=== PATIENT | female | born 1965 | race Caucasian/White ===

== ENCOUNTER → 2020-12-30 | Outpatient (CLI) | payer BC ==
[~2020-12-30] MED LIST: IBP800T PO; MDR10T PO
--- NOTE | 2020-12-30 12:08 | Diagnostic Imaging Report ---
INDICATION: Routine screening. Comparison is made with prior mammogram from 05/02/2013 and 08/12/2012. 2-D and 3-D bilateral screening mammography was performed with CAD. Both breasts are heterogeneously dense, limiting the sensitivity of mammography. There is a bilobed circumscribed lesion versus 2 adjacent circumscribed lesions in the upper and outer aspect of the right breast at mid depth. This has increased in size since study from 2012. This could represent enlarging cysts. Ultrasound is recommended. This is located approximately 7 cm from the nipple. A left breast is unremarkable apart from scattered benign calcifications. Axillae are unremarkable. IMPRESSION: Enlarging circumscribed lesion in the upper outer right breast 7 cm from the nipple. Further evaluation with ultrasound is recommended. BI-RADS Category 0 ACR BI-RADS Category 0: Incomplete. (Needs additional imaging evaluation). Result letter will be mailed to the patient. Note: At least 10% of breast cancer is not imaged by mammography. Dictated by: Dictated on workstation # [id number]
== END ==
LOC: RAD 09:44
PROVIDERS: ATTEND Nurse Practitioner Family
DX: Z12.31 Encounter for screening mammogram for malignant neoplasm of breast (principal); N64.9 Disorder of breast, unspecified
CPT/HCPCS: 77063; 77067

== ENCOUNTER → 2021-01-06 | Outpatient (CLI) | payer BC ==
--- NOTE | 2021-01-06 15:48 | Diagnostic Imaging Report ---
INDICATION: Right breast density. Correlation is made with screening mammogram from 12/30/2020. Sonographic interrogation upper outer right breast was performed. No sonographic abnormality is seen. No solid or cystic masses detected. IMPRESSION: BI-RADS Category 3. No sonographic abnormality is seen. Mammographic density does have a benign appearance, however followup right mammogram in 6 months is recommended to show continued stability. ACR BI-RADS Category 3: Probably benign findings. Result letter will be mailed to the patient. Note: At least 10% of breast cancer is not imaged by mammography. Dictated by: Dictated on workstation # [id number]
== END ==
LOC: RAD 14:15
PROVIDERS: ATTEND Nurse Practitioner Family
DX: N64.9 Disorder of breast, unspecified (principal)

== ENCOUNTER 2021-01-22 05:38 | Outpatient (CLI) | payer BC ==
[~2021-01-22] VITALS: Ht 165 cm; Wt 89.4 kg
== END 2021-01-27 11:59 | disposition home or self-care (01) ==
LOC: PREOP 05:38
PROVIDERS: ATTEND Surgery
DX: Z01.818 Encounter for other preprocedural examination (principal)

== ENCOUNTER 2022-03-20 21:34 | Day surgery (SDC) | payer BC ==
[~2022-03-20] VITALS: Ht 167.7 cm; Wt 85.2 kg
--- NOTE | 2022-03-20 21:51 | ED Abdominal Pain ---
General Chief Complaint: Abdominal/GI Problems Stated Complaint: ABDOMINAL PAIN Nursing Triage Note: PT AMB TO ED BY POV WITH C/O LOWER ABD PAIN. REPORTS PAIN AND DECREASED APPETITE SINCE WEDNESDAY MORNING. LBM THIS MORNING. DENIES N/V/D OR FEVER. Source of Information: Patient History of Present Illness Date Seen by Provider: Mar 20, 2022 Time Seen by Provider: 21:50 Initial Comments PT ARRIVES VIA POV FROM HOME STATES SHE WOKE UP YESTERDAY MORNING WITH CRAMPING ALL OVER HER MID AND LOWER ABDOMEN THE PAIN IS IN HER RLQ TODAY. PAIN IS CONSTANT, AND DOES NOT RADIATE. IT DOES HURT A LITTLE TO WALK AND MOVE SHE HAS HAD DECREASED APPETITE ALL DAY YESTERDAY AND TODAY. SHE DID NOT EAT AT ALL YESTERDAY, AND ONLY HAD COME CHICKEN NOODLE SOUP AROUND NOON TODAY SHE HAS BEEN DRINKING SOME LIQUIDS TODAY NO NAUSEA/VOMITING. HAD BM THIS AM, AFTER TAKING LAXATIVES LAST NIGHT NO URINARY SYMPTOMS NO FEVER HAS NOT TAKEN ANYTHING FOR PAIN PT HAS HAD A PRIOR UTERINE ABLATION AND X 1. NO OTHER SURGERIES SHE HAS HAD ELEVATED BLOOD PRESSURE, BUT DOES NOT TAKE ANYTHING FOR IT. PCP: DR. RUVALCABA Allergies and Home Medications Allergies Coded Allergies: Penicillins (Unverified Allergy, Unknown, 06/22/13) Patient Home Medication List Home Medication List Reviewed: Yes Hydrocodone Bit/Acetaminophen (HYDROcodone/APAP 5 MG/325 MG TAB) 1 Tab Tab, 1 TAB PO Q8H PRN for PAIN-MODERATE (5-7) Prescribed by: NICOLASA MOSHER on 03/21/22 1144 Sulfamethoxazole/Trimethoprim (Bactrim Ds Tablet) 1 Each Tablet, 1 EACH PO BID Prescribed by: NICOLASA MOSHER on 03/21/22 1153 Review of Systems Review of Systems Constitutional: no symptoms reported Respiratory: No Symptoms Reported Cardiovascular: No Symptoms Reported Gastrointestinal: See HPI, Abdominal Pain; Denies Constipated, Denies Diarrhea, Denies Nausea; Poor Appetite; Denies Vomiting Genitourinary: No Symptoms Reported Musculoskeletal: no symptoms reported Skin: no symptoms reported Psychiatric/Neurological: No Symptoms Reported Endocrine: No Symptoms Reported Hematologic/Lymphatic: No Symptoms Reported Past Crsvxfu-Skkolr-Eihkkm Hx Patient Social History Tobacco Use?: No Use of E-Cig and/or Vaping dev: No Substance use?: No Alcohol Use?: No Pt feels they are or have been: No Immunizations Up To Date Influenza Vaccine Up-to-Date: No; Not Current First/Initial COVID19 Vaccinat: 04/2020 Second COVID19 Vaccination Jose Luis: 06/07/2020 Third COVID19 Vaccination Date: YES Past Medical History Surgery/Hospitalization HX: C SECT Surgeries: Yes (UTERINE ABLATION) Section, Tonsillectomy Respiratory: No Cardiac: No Neurological: No : No Reproductive Disorders: Yes (ABNORMAL UTERINE BLEEDING; S/P UTERINE ABLATION) Female Reproductive Disorders: Menstrual Problems Genitourinary: No Gastrointestinal: No Musculoskeletal: No Endocrine: No HEENT: No Cancer: No Psychosocial: No Integumentary: No Blood Disorders: No Physical Exam Vital Signs Vital Signs - First Documented 03/20/22 21:39 Temp 37.0 Pulse 106 Resp 16 B/P (MAP) 187/101 (129) Pulse Ox 94 O2 Delivery Room Air Capillary Refill : Less Than 3 Seconds Height/Weight/BMI Height: 5'5.00" Weight: 182lbs. oz. 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, no motor/sensory deficits, a lert, normal mood/affect, oriented x 3 Skin: normal color, warm/dry; No rash Progress/Results/Core Measures Results/Orders Lab Results Laboratory Tests Test 03/20/22 22:00 03/20/22 22:20 Range/Units Urine Color YELLOW Urine Clarity CLOUDY Urine pH 5.5 5-9 Urine Specific [place] >1.030 1.016-1.022 Urine Protein 1+ H NEGATIVE Urine Glucose (UA) NEGATIVE NEGATIVE Urine Ketones 2+ H NEGATIVE Urine Nitrite NEGATIVE NEGATIVE Urine Bilirubin NEGATIVE NEGATIVE Urine Urobilinogen 0.2 < = 1.0 MG/DL Urine Leukocyte Esterase TRACE H NEGATIVE Urine RBC (Auto) 1+ H NEGATIVE Urine RBC NONE /HPF Urine WBC 5-10 H /HPF Urine Squamous Epithelial Cells >50 H /HPF Urine Crystals NONE /LPF Urine Bacteria FEW H /HPF Urine Casts NONE /LPF Urine Mucus LARGE H /LPF Urine Culture Indicated YES Urine Test NEGATIVE NEGATIVE White Blood Count 12.4 H 4.3-11.0 10^3/uL Red Blood Count 4.81 3.80-5.11 10^6/uL Hemoglobin 14.2 11.5-16.0 g/dL Hematocrit 42 35-52 % Mean Corpuscular Volume 87 80-99 fL Mean Corpuscular Hemoglobin 30 25-34 pg Mean Corpuscular Hemoglobin Concent 34 32-36 g/dL Red Cell Distribution Width 12.5 10.0-14.5 % Platelet Count 165 130-400 10^3/uL Mean Platelet Volume 10.5 9.0-12.2 fL Immature Granulocyte % (Auto) 0 % Neutrophils (%) (Auto) 81 H 42-75 % Lymphocytes (%) (Auto) 10 L 12-44 % Monocytes (%) (Auto) 8 0-12 % Eosinophils (%) (Auto) 0 0-10 % Basophils (%) (Auto) 0 0-10 % Neutrophils # (Auto) 10.1 H 1.8-7.8 10^3/uL Lymphocytes # (Auto) 1.3 1.0-4.0 10^3/uL Monocytes # (Auto) 1.0 0.0-1.0 10^3/uL Eosinophils # (Auto) 0.0 0.0-0.3 10^3/uL Basophils # (Auto) 0.0 0.0-0.1 10^3/uL Immature Granulocyte # (Auto) 0.1 0.0-0.1 10^3/uL Erythrocyte Sedimentation Rate 45 H 0-30 MM/HR Sodium Level 136 135-145 MMOL/L Potassium Level 3.6 3.6-5.0 MMOL/L Chloride Level 102 98-107 MMOL/L Carbon Dioxide Level 22 21-32 MMOL/L Anion Gap 12 5-14 MMOL/L Blood Urea Nitrogen 13 7-18 MG/DL Creatinine 0.81 0.60-1.30 MG/DL Estimat Glomerular Filtration Rate 86 BUN/Creatinine Ratio 16 Glucose Level 111 H 70-105 MG/DL Calcium Level 9.1 8.5-10.1 MG/DL Corrected Calcium 9.0 8.5-10.1 MG/DL Total Bilirubin 0.8 0.1-1.0 MG/DL Aspartate Amino Transf (AST/SGOT) 12 5-34 U/L Alanine Aminotransferase (ALT/SGPT) 20 0-55 U/L Alkaline Phosphatase 81 40-136 U/L C-Reactive Protein High Sensitivity 11.16 H 0.00-0.50 MG/DL Total Protein 7.5 6.4-8.2 GM/DL Albumin 4.1 3.2-4.5 GM/DL Amylase Level 22 L 25-125 U/L Lipase 5 L 8-78 U/L My Orders Orders - KASSIE FALL DO Ua Culture If Indicated (03/20/22 21:50) Hcg,Qualitative Urine (03/20/22 21:51) Ed Iv/Invasive Line Start (03/20/22 21:58) Amylase (03/20/22 21:58) Cbc With Automated Diff (03/20/22 21:58) Comprehensive Metabolic Panel (03/20/22 21:58) Hs C Reactive Protein (03/20/22 21:58) Lipase (03/20/22 21:58) Erythrocyte Sedimentation Rate (03/20/22 21:58) Urine Culture (03/20/22 22:00) Ct Abd/Pelvis Wo(Kidney Stone) (03/20/22 22:32) Ketorolac Injection (Toradol Injection) (03/20/22 22:45) Ceftriaxone 1 Gm Pre-Mix (Rocephin 1 Gm (03/20/22 22:45) Ed Iv/Invasive Line Start (03/20/22 23:11) Lactated Ringers (Lr 1000 Ml Iv Solution (03/20/22 23:15) Medications Given in ED Current Medications Medications Dose Ordered Sig/[place] Route Start Time Stop Time Status Last Admin Dose Admin Ceftriaxone Sodium/Dextrose 50 ml @ 100 mls/hr ONCE ONCE IV 03/20/22 22:45 03/20/22 23:14 DC 03/20/22 23:15 100 MLS/HR Ketorolac Tromethamine 30 mg ONCE ONCE IVP 03/20/22 22:45 03/20/22 22:46 DC 03/20/22 23:15 30 MG Lactated Ringer's 1,000 ml @ 0 mls/hr Q0M ONCE IV 03/20/22 23:15 03/20/22 23:16 DC 03/20/22 23:15 0 MLS/HR Vital Signs/I&O 03/20/22 21:39 Temp 37.0 Pulse 106 Resp 16 B/P (MAP) 187/101 (129) Pulse Ox 94 O2 Delivery Room Air Blood Pressure Mean: 129 Progress Progress Note : Progress Note GIVEN : -IV FLUIDS -ROCEPHIN FOR UTI -TORADOL UNEVENTFUL ER STAY. REVIEWED TEST RESULTS, ANTICIPATED COURSE, NEED FOR SURGERY/ADMIT, AND PT IS AGREEABLE TO PLAN Diagnostic Imaging Comments CT ABDOMEN/PELVIS--+ APPENDICITIS, WITH INFLAMMATION AROUND TERMINAL ILEUM. NO FREE AIR OR ABSCESS. PT [facility] RADIOLOGIST VIA PHONE AT [phone] AND VIA FAX AT [phone] Reviewed: Reviewed by Me, Discussed w/Radiologist Departure Communication (Admissions) [id number]--SPOKE WITH DR. MOSHER, SURGEON, WILL BE DOWN TO SEE PT. DR. MOSHER HAS NOT BEEN DOWN TO SEE PT, WILL ADMIT TO THE FLOOR, UNTIL HE CAN SEE PT. Impression Primary Impression: Appendicitis Additional Impression: Urinary tract infection Disposition: ADMITTED INPATIENT Condition: Stable Admissions Decision to Admit Reason: Admit from ER (General) Decision to Admit/Date: Mar 20, 2022 Time/Decision to Admit Time: 23:00 Departure-Patient Inst. Referrals: BOBBI RUVALCABA MD (PCP) Primary Care Physician Scripts Sulfamethoxazole/Trimethoprim (Bactrim Ds Tablet) 1 Each Tablet 1 EACH PO BID, #6 TAB Prov: NICOLASA MOSHER DO 03/21/22 Hydrocodone Bit/Acetaminophen (HYDROcodone/APAP 5 MG/325 MG TAB) 1 Tab Tab 1 TAB PO Q8H PRN for PAIN-MODERATE (5-7), #20 TAB Prov: NICOLASA MOSHER DO 03/21/22 KASSIE FALL DO Mar 20, 2022 21:51
[2022-03-20 22:25] LABS: BILIRUBIN,URINE NEGATIVE (NEGATIVE); CLARITY,URINE CLOUDY; COLOR,URINE YELLOW; GLUCOSE, URINE (UA) NEGATIVE (NEGATIVE); KETONES,URINE 2+ (NEGATIVE); NITRITE,URINE NEGATIVE (NEGATIVE); PH,URINE 5.5 (5-9); PROTEIN,URINE 1+ (NEGATIVE)
[2022-03-20 22:26] LABS: BACTERIA,URINE FEW /HPF; LEUKOCYTE ESTERASE ,URINE TRACE (NEGATIVE)
[2022-03-20 22:27] LABS: SQUAMOUS EPITHELIAL CELL,UR >50 /HPF
[2022-03-20 22:30] LABS: BASOPHILS % (AUTO) 0 % (0-10); EOSINOPHILS % (AUTO) 0 % (0-10); HEMATOCRIT 42 % (35-52); HEMOGLOBIN 14.2 g/dL (11.5-16.0); LYMPHOCYTES # (AUTO) 1.3 10^3/uL (1.0-4.0); LYMPHOCYTES % (AUTO) 10 % (12-44); MEAN CORPUSCULAR HEMOGLOBIN 30 pg (25-34); MEAN CORPUSCULAR HGB CONC 34 g/dL (32-36); MEAN CORPUSCULAR VOLUME 87 fL (80-99); MEAN PLATELET VOLUME 10.5 fL (9.0-12.2); MONOCYTES % (AUTO) 8 % (0-12); NEUTROPHILS # (AUTO) 10.1 10^3/uL (1.8-7.8); NEUTROPHILS % (AUTO) 81 % (42-75); PLATELET COUNT 165 10^3/uL (130-400); WHITE BLOOD COUNT 12.4 10^3/uL (4.3-11.0)
[2022-03-20 22:45] LABS: ALBUMIN 4.1 GM/DL (3.2-4.5); POTASSIUM 3.6 MMOL/L (3.6-5.0)
[2022-03-20] MEDS ORDERED: cefTRIAXone 1 GM PRE-MIX 50 ML IV ONE (22:45)
[2022-03-20] MEDS ORDERED: KETOROLAC 30 MG/ML VIAL IVP ONE (22:45)
[2022-03-20 22:46] LABS: CALCIUM 9.1 MG/DL (8.5-10.1)
[2022-03-20 22:48] LABS: TOTAL PROTEIN 7.5 GM/DL (6.4-8.2)
[2022-03-20 22:49] LABS: ERYTHROCYTE SEDIMENTATION RATE 45 MM/HR (0-30)
[2022-03-20 22:50] LABS: BILIRUBIN,TOTAL 0.8 MG/DL (0.1-1.0)
[2022-03-20 22:51] LABS: CREATININE SERUM 0.81 MG/DL (0.60-1.30)
[2022-03-20] MEDS ORDERED: LACTATED RINGERS 1,000 ML IV ONE (23:15)
[2022-03-21] VITALS (9 sets, daily range): BP systolic 110–134; BP diastolic 57–79
[2022-03-21] MEDS ORDERED: ONDANSETRON 4 MG/2 ML (SDV) Z0FRAN IV PRN (01:30)
[2022-03-21] MEDS ORDERED: fentaNYL INJ 100 MCG/2 ML AMP IV PRN (01:30)
[2022-03-21] MEDS: D5 1/2 NS W/KCL 20 MEQ/L 1,000 ML IV SCH ×2 (01:52→06:49)
[2022-03-21 05:39] LABS: BASOPHILS % (AUTO) 0 % (0-10); EOSINOPHILS # (AUTO) 0.1 10^3/uL (0.0-0.3); EOSINOPHILS % (AUTO) 1 % (0-10); HEMATOCRIT 36 % (35-52); HEMOGLOBIN 12.3 g/dL (11.5-16.0); LYMPHOCYTES # (AUTO) 1.7 10^3/uL (1.0-4.0); LYMPHOCYTES % (AUTO) 15 % (12-44); MEAN CORPUSCULAR HEMOGLOBIN 30 pg (25-34); MEAN CORPUSCULAR HGB CONC 34 g/dL (32-36); MEAN CORPUSCULAR VOLUME 88 fL (80-99); MEAN PLATELET VOLUME 10.7 fL (9.0-12.2); MONOCYTES % (AUTO) 9 % (0-12); NEUTROPHILS # (AUTO) 8.2 10^3/uL (1.8-7.8); NEUTROPHILS % (AUTO) 75 % (42-75); PLATELET COUNT 175 10^3/uL (130-400); WHITE BLOOD COUNT 10.9 10^3/uL (4.3-11.0)
[2022-03-21 06:05] LABS: CALCIUM 8.4 MG/DL (8.5-10.1); CREATININE SERUM 0.65 MG/DL (0.60-1.30); POTASSIUM 3.5 MMOL/L (3.6-5.0)
--- NOTE | 2022-03-21 06:46 | Diagnostic Imaging Report ---
PROCEDURE: CT urinary tract, rule out kidney stone. TECHNIQUE: Multiple contiguous axial images were obtained through the abdomen and pelvis without the use of intravenous contrast. Auto Exposure Controls were utilized during the CT exam to meet ALARA standards for radiation dose reduction. INDICATION: Abdominal pain. COMPARISON: None. DISCUSSION: The lung bases are well-aerated. Normal heart size. No pleural or pericardial fluid. The liver, gallbladder, pancreas, stomach, spleen, and adrenal glands are unremarkable. No renal stone or hydronephrosis. The aorta is normal in caliber. There are inflammatory changes noted along the appendix which appears dilated and thick-walled. However, inflammatory changes extend from the right pelvis and along the right abdomen involving the cecum and terminal ileum. No abscess or free air identified. Whether the inflammatory changes within the appendix are primary and the other changes within the bowel are secondary or vice versa is indeterminate. This likely represents acute appendicitis though secondary changes within the appendix from an underlying enterocolitis cannot be excluded. Recommend clinical correlation. No free air. No adenopathy. The uterus and urinary bladder are unremarkable. No osseous abnormality. IMPRESSION: 1. Significant inflammatory changes noted involving the right lower quadrant and right pelvis. This primarily involves the appendix and the adjacent cecum and terminal ileum. See above discussion. 2. Agree with preliminary report. Dictated by: Dictated on workstation # [id number]
--- NOTE | 2022-03-21 08:26 | Consultation - Surgery ---
CARLYJESSICA Barron 03/21/22 0826: History of Present Illness History of Present Illness Patient Consulted On(radha/time) 03/21/22 08:25 Date Seen by Provider: Mar 21, 2022 Time Seen by Provider: 07:15 Reason for Visit: Abdominal pain History of Present Illness Ms. Mena is a 56 year old female with no significant past medical history who presented to the ED MAR 23 for abdominal pain. On morning patient had sore, abdominal cramping that was generalized throughout her abdomen. The pain proceeded to get worse. She had a loss of appetite. The pain seemed to localize to her suprapubic/RLQ region. She denied nausea or vomiting or diarrhea. She did have some constipation so she took some laxatives which caused some loose bowel movements but did not improve the pain. Moving made her pain worse. She described it as dull or cramping and progressive. Denies radiation of pain. Did not take any pain medicine. Patient had a CT done in the ED that showed appendicitis. UA consistent with UTI, patient denied trouble urinating or pain with urination. Unsure if suprapubic pain was from UTI or appendicitis. Allergies and Home Medications Allergies Coded Allergies: Penicillins (Unverified Allergy, Unknown, 06/22/13) Past [id number] Hx Patient Social History Smoking Status: Never a Smoker 2nd Hand Smoke Exposure: No Alcohol Use?: No Have you traveled recently?: No Surgeries History of Surgeries: Yes (Uterine ablation 6-8 years ago) Surgeries: Section, Tonsillectomy Respiratory History of Respiratory Disorde: No Cardiovascular History of Cardiac Disorders: No Neurological History of Neurological Disord: No Reproductive System : No Hx Reproductive Disorders: Yes (ABNORMAL UTERINE BLEEDING; S/P UTERINE ABLATION) Female Reproductive Disorders: Menstrual Problems Genitourinary History of Genitourinary Disor: No Gastrointestinal History of Gastrointestinal Di: No Musculoskeletal History of Musculoskeletal Dis: No Endocrine History of Endocrine Disorders: No HEENT History of HEENT Disorders: No Cancer History of Cancer: No Psychosocial History of Psychiatric Problem: No Integumentary History of Skin or Integumenta: No Blood Transfusions History of Blood Disorders: No Family Medical History Significant Family History: No Pertinent Family Hx (Patient denied history of medial conditions in mother, father, or siblings.) Review of Systems-General Constitutional: No chills, No fever Respiratory: No cough, No short of breath Cardiovascular: No chest pain, No palpitations Gastrointestinal: abdominal pain, constipation, loss of appetite; No nausea, No vomiting Genitourinary: No dysuria, No frequency, No hesitancy Psychiatric/Neurological: Denies Numbness, Denies Tingling Physical Exam-General Problems Physical Exam Vital Signs Vital Signs - First Documented 03/20/22 21:39 Temp 37.0 Pulse 106 Resp 16 B/P (MAP) 187/101 (129) Pulse Ox 94 O2 Delivery Room Air Capillary Refill : Less Than 3 Seconds General Appearance: WD/WN, no apparent distress HEENT: PERRL/EOMI; No scleral icterus (R), No scleral icterus (L) Neck: non-tender, normal inspection Respiratory: chest non-tender, lungs clear, normal breath sounds, no respiratory distress, no accessory muscle use Cardiovascular: normal peripheral pulses, regular rate, rhythm, no murmur Peripheral Pulses: 2+ Radial Pulses (R), 2+ Radial Pulses (L) Gastrointestinal: soft; No distended; tenderness (Tender in RLQ and suprapubic. Greatest tenderness in RLQ.) Extremities: non-tender, no calf tenderness Neurologic/Psychiatric: no motor/sensory deficits, alert, normal mood/affect, oriented x 3 Skin: normal color, warm/dry Data Review Labs Laboratory Tests 03/20/22 22:00: Urine Color YELLOW, Urine Clarity CLOUDY, Urine pH 5.5, Urine Specific Colman >1.030, Urine Protein 1+H, Urine Glucose (UA) NEGATIVE, Urine Ketones 2+H, Urine Nitrite NEGATIVE, Urine Bilirubin NEGATIVE, Urine Urobilinogen 0.2, Urine Leukocyte Esterase TRACEH, Urine RBC (Auto) 1+H, Urine RBC NONE, Urine WBC 5-10H , Urine Squamous Epithelial Cells >50H, Urine Crystals NONE, Urine Bacteria FEWH , Urine Casts NONE, Urine Mucus LARGEH, Urine Culture Indicated YES, Urine Test NEGATIVE 03/20/22 22:20: White Blood Count 12.4H, Red Blood Count 4.81, Hemoglobin 14.2, Hematocrit 42, Mean Corpuscular Volume 87, Mean Corpuscular Hemoglobin 30, Mean Corpuscular Hemoglobin Concent 34, Red Cell Distribution Width 12.5, Platelet Count 165, Mean Platelet Volume 10.5, Immature Granulocyte % (Auto) 0, Neutrophils (%) (Auto) 81H, Lymphocytes (%) (Auto) 10L, Monocytes (%) (Auto) 8, Eosinophils (%) (Auto) 0, Basophils (%) (Auto) 0, Neutrophils # (Auto) 10.1H, Lymphocytes # (Auto) 1.3, Monocytes # (Auto) 1.0, Eosinophils # (Auto) 0.0, Basophils # (Auto) 0.0, Immature Granulocyte # (Auto) 0.1, Erythrocyte Sedimentation Rate 45H, Sodium Level 136, Potassium Level 3.6, Chloride Level 102, Carbon Dioxide Level 22, Anion Gap 12, Blood Urea Nitrogen 13, Creatinine 0.81, Estimat Glomerular Filtration Rate 86, BUN/Creatinine Ratio 16, Glucose Level 111H, Calcium Level 9.1, Corrected Calcium 9.0, Total Bilirubin 0.8, Aspartate Amino Transf (AST/SGOT) 12, Alanine Aminotransferase (ALT/SGPT) 20, Alkaline Phosphatase 81, C-Reactive Protein High Sensitivity 11.16H, Total Protein 7.5, Albumin 4.1, Amylase Level 22L, Lipase 5L 03/21/22 05:08: White Blood Count 10.9, Red Blood Count 4.08, Hemoglobin 12.3, Hematocrit 36, Mean Corpuscular Volume 88, Mean Corpuscular Hemoglobin 30, Mean Corpuscular Hemoglobin Concent 34, Red Cell Distribution Width 12.5, Platelet Count 175, Mean Platelet Volume 10.7, Immature Granulocyte % (Auto) 0, Neutrophils (%) (Auto) 75, Lymphocytes (%) (Auto) 15, Monocytes (%) (Auto) 9, Eosinophils (%) (Auto) 1, Basophils (%) (Auto) 0, Neutrophils # (Auto) 8.2H, Lymphocytes # (Auto) 1.7, Monocytes # (Auto) 1.0, Eosinophils # (Auto) 0.1, Basophils # (Auto) 0.0, Immature Granulocyte # (Auto) 0.0, Sodium Level 135, Potassium Level 3.5L, Chloride Level 105, Carbon Dioxide Level 21, Anion Gap 9, Blood Urea Nitrogen 10, Creatinine 0.65, Estimat Glomerular Filtration Rate 104, BUN/Creatinine Ratio 15, Glucose Level 137H, Calcium Level 8.4L Radiology Date of Exam:03/20/22 CT ABD/PELVIS WO(KIDNEY STONE) PROCEDURE: CT urinary tract, rule out kidney stone. TECHNIQUE: Multiple contiguous axial images were obtained through the abdomen and pelvis without the use of intravenous contrast. Auto Exposure Controls were utilized during the CT exam to meet ALARA standards for radiation dose reduction. INDICATION: Abdominal pain. COMPARISON: None. DISCUSSION: The lung bases are well-aerated. Normal heart size. No pleural or pericardial fluid. The liver, gallbladder, pancreas, stomach, spleen, and adrenal glands are unremarkable. No renal stone or hydronephrosis. The aorta is normal in caliber. There are inflammatory changes noted along the appendix which appears dilated and thick-walled. However, inflammatory changes extend from the right pelvis and along the right abdomen involving the cecum and terminal ileum. No abscess or free air identified. Whether the inflammatory changes within the appendix are primary and the other changes within the bowel are secondary or vice versa is indeterminate. This likely represents acute appendicitis though secondary changes within the appendix from an underlying enterocolitis cannot be excluded. Recommend clinical correlation. No free air. No adenopathy. The uterus and urinary bladder are unremarkable. No osseous abnormality. IMPRESSION: 1. Significant inflammatory changes noted involving the right lower quadrant and right pelvis. This primarily involves the appendix and the adjacent cecum and terminal ileum. See above discussion. 2. Agree with preliminary report. Assessment/Plan Assessment/Plan Assessment/Plan Acute appendicitis Per radiology report: inflammatory changes in appendix which is dilated and thick walled. Also inflammatory changes involving cecum and terminal ileum. Possible UTI UA showed leukocyte esterase, bacteria, and WBC. Also showed squamous epithelial cells, possibly not clean catch Treated with ceftriaxone in ED Abdominal pain Secondary to above Leukocytosis 12.4 to 10.9 this morning NPO IVF, antiemetics, and pain control as needed Plan for surgery today, consent not signed yet as of this note NICOLASA HADDAD DO 03/21/22 1107: History of Present Illness History of Present Illness Time Seen by Provider: 09:10 History of Present Illness Surgery asked to consult regarding RLQ pain/appendicitis. HPI per ED: PT ARRIVES VIA POV FROM HOME, STATES SHE WOKE UP YESTERDAY MORNING WITH CRAMPING ALL OVER HER MID AND LOWER ABDOMEN, THE PAIN IS IN HER RLQ TODAY. PAIN IS CONSTANT, AND DOES NOT RADIATE. IT DOES HURT A LITTLE TO WALK AND MOVE, SHE HAS HAD DECREASED APPETITE ALL DAY YESTERDAY AND TODAY. SHE DID NOT EAT AT ALL YESTERDAY, AND ONLY HAD COME CHICKEN NOODLE SOUP AROUND NOON TODAY, SHE HAS BEEN DRINKING SOME LIQUIDS TODAY, NO NAUSEA/VOMITING. HAD BM THIS AM, AFTER TAKING LAXATIVES LAST NIGHT, NO URINARY SYMPTOMS, NO FEVER, HAS NOT TAKEN ANYTHING FOR PAIN When I spoke with pt this am she said pain started around belly button and went down into RLQ. Pain was described as dull, achey and constant. Associated with loss of appetite. Allergies and Home Medications Allergies Coded Allergies: Penicillins (Unverified Allergy, Unknown, 06/22/13) Patient Home Medication List Home Medication List Reviewed: Yes Past Dpcmyoz-[id number]-Nugkzw Hx Patient Social History Smoking Status: Never a Smoker Alcohol Use?: No Surgeries History of Surgeries: Yes (Uterine ablation 6-8 years ago) Surgeries: Section Respiratory History of Respiratory Disorde: No Cardiovascular History of Cardiac Disorders: No Neurological History of Neurological Disord: No Genitourinary History of Genitourinary Disor: No Gastrointestinal History of Gastrointestinal Di: No Musculoskeletal History of Musculoskeletal Dis: No Endocrine History of Endocrine Disorders: No HEENT History of HEENT Disorders: No Loss of Vision: Denies Hearing Impairment: Denies Cancer History of Cancer: No Psychosocial History of Psychiatric Problem: No Integumentary History of Skin or Integumenta: No Family Medical History Significant Family History: No Pertinent Family Hx (Patient denied history of medial conditions in mother, father, or siblings.) Review of Systems-General Constitutional: No chills, No fever EENTM: No double vision, No mouth pain, No mouth swelling, No epistaxis Respiratory: No cough, No short of breath Cardiovascular: No chest pain, No palpitations Gastrointestinal: abdominal pain, constipation, loss of appetite; No nausea, No vomiting Genitourinary: No dysuria, No frequency, No hesitancy Musculoskeletal: No joint pain, No joint swelling Skin: No change in color, No change in hair/nails Psychiatric/Neurological: Denies Anxiety, Denies Depressed, Denies Seizure, Denies Tingling Physical Exam-General Problems Physical Exam General Appearance: WD/WN, mild distress (secondary to pain), obese Eyes: Bilateral Eye PERRL, Bilateral Eye EOMI HEENT: pharynx normal; No scleral icterus (R), No scleral icterus (L) Neck: non-tender, supple Respiratory: chest non-tender, lungs clear, normal breath sounds, no respirator y distress, no accessory muscle use Cardiovascular: regular rate, rhythm, no murmur Peripheral Pulses: 2+ Radial Pulses (R), 2+ Radial Pulses (L) Gastrointestinal: soft; No distended; tenderness (Tender in RLQ and suprapubic. Greatest tenderness in RLQ.) Rectal: deferred Extremities: non-tender, no pedal edema, no calf tenderness Neurologic/Psychiatric: no motor/sensory deficits, alert, normal mood/affect, oriented x 3 Skin: normal color, warm/dry Lymphatic: no adenopathy (neck, axilla or groin) Assessment/Plan Assessment/Plan Assessment/Plan Acute appendicitis Per radiology report: inflammatory changes in appendix which is dilated and thick walled. Also inflammatory changes involving cecum and terminal ileum. Possible UTI UA showed leukocyte esterase, bacteria, and WBC. Also showed squamous epithelial cells, possibly not clean catch Treated with ceftriaxone in ED Abdominal pain Secondary to above Leukocytosis 12.4 to 10.9 this morning I reviewed the CT myself and spoke with ED physician. Pt is NPO, getting IV fluids, antiemetics, and pain control as needed. Plan for surgery today; Laparoscopic Appendectomy, possible open and all other indicated procedures. Wi ll get consent signed. I went over all risks and complications not limited to pain, bleeding, infection, scar, damage to intestine and need for further procedure. All questions answered to her and her family's satisfaction. Supervisory-Addendum Brief Verification & Attestation Participated in pt care: history, MDM, physical Personally performed: exam, history, MDM, supervision of care Care discussed with: Medical Student Procedures: n/a Verification and Attestation of Medical Student E/M Service A medical student performed and documented this service. I then reviewed and verified all information documented by the medical student and made modifications to such information, when appropriate. I personally performed a physical exam, medical decision making and then discussed any differences between the notes and made revisions as necessary to create one note. Nicolasa Haddad , 03/21/22 , 11:07 JESSICA CARROLL Mar 21, 2022 08:26 NICOLASA HADDAD DO Mar 21, 2022 11:07
[2022-03-21] MEDS ORDERED: LIDOCAINE/EPI 1%-1:100,000 (XYLOCAINE) 30ML ONE (09:45)
[2022-03-21] MEDS ORDERED: fentaNYL INJ 100 MCG/2 ML AMP ONE (09:53)
[2022-03-21] MEDS ORDERED: MIDAZOLAM 2 MG/2 ML (VERSED) VIAL ONE (09:55)
[2022-03-21] MEDS: LACTATED RINGERS 1,000 ML IV PRN ×2 (09:56→10:53)
[2022-03-21] MEDS ORDERED: CLINDAMYCIN 600 MG/50 ML IVPB 0 ML IV ONE (10:02)
[2022-03-21] MEDS ORDERED: CLINDAMYCIN 900 MG/50 ML IVPB 50 ML IV ONE ×2 (10:05→11:00)
[2022-03-21] MEDS ORDERED: LIDOCAINE PF 2% 5 ML (XYLOCAINE) VIAL ONE (10:53)
[2022-03-21] MEDS ORDERED: GLYCOPYRROLATE 0.2 MG/ML (ROBINUL) 2 ML VIAL ONE ×2 (10:53→11:01)
[2022-03-21] MEDS ORDERED: proPOfol 200 MG/20 ML (DIPRIVAN) VIAL IV ONE (10:53)
[2022-03-21] MEDS ORDERED: NEOSTIGMINE 3 MG/3 ML VIAL ONE ×2 (10:53→11:01)
[2022-03-21] MEDS ORDERED: ROCURONIUM 50 MG/5 ML (ZEMURON) VIAL IV ONE (10:53)
[2022-03-21] MEDS ORDERED: ONDANSETRON 4 MG/2 ML (SDV) Z0FRAN ONE (10:53)
[2022-03-21] MEDS ORDERED: SEVOFLURANE (ULTANE) 15 ML INHAL SOLN ONE (10:58)
--- NOTE | 2022-03-21 11:14 | Anesthesia-General Post-Op ---
General Patient Condition Mental Status/LOC: Same as Preop Cardiovascular: Satisfactory Nausea/Vomiting: Absent Respiratory: Satisfactory Pain: Controlled Complications: Absent Post Op Complications Complications None Follow Up Care/Instructions Patient Instructions None needed. Anesthesia/Patient Condition Patient Condition Patient is doing well, no complaints, stable vital signs, no apparent adverse anesthesia problems. No complications reported per nursing. PAWAN TEJADA CRNA Mar 21, 2022 11:14
[2022-03-21] MEDS ORDERED: ONDANSETRON 4 MG/2 ML (SDV) Z0FRAN IVP PRN (11:15)
[2022-03-21] MEDS ORDERED: fentaNYL INJ 100 MCG/2 ML AMP IVP ONE (11:15)
[2022-03-21] MEDS ORDERED: HYDROmorphone 2 MG/ML VIAL (DILAUDID) IV ONE (11:15)
--- NOTE | 2022-03-21 11:43 | Progress Note-Post Operative ---
Post-Operative Progess Note Surgeon (s)/Welt Rougher (s) Surgeon NICOLASA MOSHER DO Welt Rougher: COREY Love Pre-Operative Diagnosis Acute appy Post-Operative Diagnosis same Procedure & Operative Findings Date of Procedure 03/21/22 Procedure Performed/Findings PROCEDURE: Laparoscopic appendectomy. COMPLICATIONS: None INDICATIONS: The patient is a 56 year old female who has been having right lower quadrant abdominal pain. Patient's exam consistent with appendicitis. I discussed risk and benefits of laparoscopic appendectomy and all indicated procedures with the possibility being a normal appendix. The patient understands the risks and benefits and wishes to proceed. Consent was signed on the chart. DESCRIPTION OF PROCEDURE: The patient was taken to the operating suite, prepped and draped in a sterile fashion. Timeout was performed. Local anesthetic was infiltrated just above the umbilicus and a #11- blade scalpel was used to make a skin incision. Cautery was used to dissect down to the fascia and scored. Kochers were used to grasp and elevate it and the abdomen was then entered. A 0 Vicryl was placed in a [id number] fashion for closure at the end of the case. The balloon trocar was inserted into the abdomen and pneumoperitoneum was achieved. Under direct visualization of the laparoscope, a 5 mm trocar was placed in the suprapubic region and a 5 mm trocar was placed in the left lower quadrant. Appendix was located after first taking down adhesions from previous (picture taken). Appendix was very inflamed and warpped up under omentum, Cecum and TI. Once it was found, started coming across the mesoappendix with Ligasure until I was at the base of the appendix. Assured myself we were away from TI and Cecum the Endo-NELLY 2.5 stapler was then fired across the base of the appendix. It was then placed in an Endobag and removed through the 12 mm trocar site. The abdomen was then irrigated and suctioned. No other pathology noted. The abdomen was then desufflated and the trocars were removed. The 0 Vicryl placed at the beginning of the case was then tied closing the 12 mm fascial defect. The skin was then closed using 4-0 Monocryl in a subcuticular fashion. The abdomen was then washed and dried and Skin Affix was placed over the incisions. The patient tolerated the procedure well without any complications and was taken to the recovery room in stable condition. Anesthesia Type GET Estimated Blood Loss Estimated blood loss (mL): scant Specimens/Packing Specimens Removed appendix NICOLASA MOSHER DO Mar 21, 2022 11:43
[2022-03-21] MEDS ORDERED: ACHD5005 PO (11:44)
--- NOTE | 2022-03-21 11:45 | Discharge Inst-Surgical ---
Discharge Inst-Surgical Depart Medication/Instructions New, Converted or Re-Newed RX: Transmitted to Pharmacy Patient Instructions Follow up Appt: Make appointment for 1 week. [phone] Instructions: No lifting greater than 20 pounds. No strenuous activity. May shower in 24 hours, no tub bath or soaking. Use incentive spirometer at home as directed. No Smoking Skin/Wound Care: May remove bandages in am. You need to leave the Dermabond on incision it will fall off on it's own. Symptoms to Report: Appetite Changes, Extremity Discoloration, Numbness/Tingling, Swelling Increased, Bleeding Excessive, Eyesight Changes, Pain Increased, Urine Color Change, Constipation(Persistent), Fever over 101 degree F, Pain/Pressure in chest, Urinating Difficulty, Cough Up/Vomit Blood, Heart Beat Irreg/Pounding, Pain/Pressure in jaw, Cramps in feet or legs, Lightheadedness, Pain/Pressure in shoulder, Diarrhea(Persistent), Memory Changes Suddenly, Questions/Concerns, Weight gain consecutive days, Dizziness/Fainting, Nausea/Vomiting, Shortness of Breath, Weight gain over 2 pounds If questions or concerns contact your physician Or seek help at emergency department. Activity Activity as Tolerated: Yes Activity Instructions: Avoid Stress to Incision Driving Instructions: No Driving/Refer to Dr. Edwards Discharge Diet: No Restrictions Diet After 24 Hours: Clear Liquid if Nauseous If Any Problems/Questions/Issu: Contact Your Physician, Go to Emergency Room Skin/Wound Care Infection Signs and Symptoms: Increased Redness, Foul Odor of Wound, Increased Drainage, Skin Itchy or Has a Rash, Increased Swelling, Temperature Above 101 F Wound Care Comment: heating pad to shoulder or neck tonight for pain Bathing Instructions: Shower Stitches/[place]/Dermabond Dis: Dermabond Ice Pack: Ice On and Off Site NICOLASA MOSHER DO Mar 21, 2022 11:45
[2022-03-21] MEDS ORDERED: SULF1TAB38 PO (11:53)
== END 2022-03-21 15:30 | disposition home or self-care (01) ==
LOC: EDUNIT# 21:34 → ER 21:35 → SDC 23:05 → UNDOADMIN 23:05 → 4TH 23:05 → SDC 03-21 15:30 → UNDODISIN 03-21 15:30
PROVIDERS: ATTEND Surgery
DX: K35.80 Unspecified acute appendicitis (principal); N39.0 Urinary tract infection, site not specified; Z88.0 Allergy status to penicillin
CPT/HCPCS: 36415; 74176; 80048; 80053; 81000; 82150; 83690; 84703; 85025; 85652; 86141; 87081; 87088